=== PATIENT | male | born 1945 | race Caucasian/White ===

== ENCOUNTER 2016-11-19 07:32 | Inpatient (IN) | payer BC, MEDICARE ==
[2016-11-07 10:33] LABS: BASOPHILS 0.5 %; BASOPHILS ABSOLUTE 0.03 10/3/uL (0.0-0.16); EOSINOPHILS 6.2 %; EOSINOPHILS ABSOLUTE 0.37 10/3/uL (0.0-0.53); HEMATOCRIT 41.3 % (40.0-51.0); HEMOGLOBIN 14.1 g/dL (13.6-17.8); IMMATURE GRANULOCYTES 0.2 %; IMMATURE GRANULOCYTES ABSOLUTE 0.01 10/3/uL (0.0-0.11); LYMPHOCYTES 35.5 %; LYMPHOCYTES ABSOLUTE 2.11 10/3/uL (0.67-4.30); MANUAL DIFF NO %; MEAN CORPUS HGB CONC 34.1 g/dL (32.0-36.0); MEAN CORPUSCULAR HEMOGLOB 29.7 pg (26.0-34.0); MEAN CORPUSCULAR VOLUME 86.9 fL (80-100); MEAN PLATELET VOLUME 10.4 fL (9.2-13.0); MONOCYTES 10.4 %; MONOCYTES ABSOLUTE 0.62 10/3/uL (0.21-1.20); NEUTROPHILS 47.2 %; PLATELET COUNT 241 10/3/uL (150-400); RBC DISTRIBUTION WIDTH 12.9 % (12.0-16.0); RED CELL COUNT 4.75 10/6/uL (4.7-6.1); WHITE BLOOD CELLS 5.9 10/3/uL (4.5-10.5)
[2016-11-07 10:41] LABS: PARTIAL THROMBO TIME 32.1 SEC (22.5-37.2)
[2016-11-07 10:47] LABS: % IRON SAT 26 % (20-50); A/G RATIO 1.1 (0.7-1.9); ALBUMIN 3.8 G/DL (3.5-5.0); ALKALINE PHOSPHATASE 78 U/L (45-117); BUN (BLOOD UREA NITROGEN) 11 MG/DL (6-23); CALCIUM, SERUM 8.8 MG/DL (8.5-10.4); CHLORIDE, SERUM 104 MMOL/L (96-112); CO2 (CARBON DIOXIDE) 28 MMOL/L (24-34); CREATININE 0.83 MG/DL (0.70-1.30); GFR AFRICAN AMERICAN 103 ML/MIN (>=60); GFR NON AFRICAN AMERICAN 89 ML/MIN (>=60); GLOBULIN 3.5 G/DL (2.5-4.1); GLUCOSE, SERUM 92 MG/DL (60-99); IRON BINDING CAPACITY 304 MCG/DL (250-450); IRON, SERUM 80 MCG/DL (35-150); POTASSIUM, SERUM 4.2 MMOL/L (3.5-5.3); SGOT(AST) 22 U/L (5-40); SGPT(ALT) 30 U/L (5-65); SODIUM, SERUM 142 MMOL/L (135-148); TOTAL BILIRUBIN 0.6 MG/DL (0-1.2); TOTAL PROTEIN 7.3 G/DL (6.0-8.5)
[2016-11-07 12:11] LABS: ASCORBIC ACID (UR NOT ORDER) NEG (NEG); BILIRUBIN, URINE NEGATIVE (NEG); KETONE, URINE NEGATIVE (NEG); LEUKOCYTE ESTERASE(NOT OR TRACE (NEG); WBC (NOT ORDERED) (RFLEX) 2 (0-5)
--- NOTE | ~2016-11-19 | DS ---
Discharge Summary [facility] [address] [place]. [address] NAME: SHARAN LUEVANO : 47 STATUS : DIS IN PAT#: [id number] AGE: 71 ADM/REG DATE : 11/19/16 MR#: [id number] REPORT SERV DATE: 12/04/16 DICTATED BY: DIVINA ROBBINS DATE: 12/04/16 REPORT STATUS : Draft TRANSCRIBED BY: ANGELA DATE: 12/04/16 Data Collection from hospitalization DISCHARGE DIAGNOSES: 1. Coronary artery disease, status post coronary artery bypass grafting x7. 2. Hypertension. 3. Hypercholesterolemia. 4. Torn left rotator cuff. CONSULTATIONS: Nikos Hernandez M.D. PROCEDURES: 1. Coronary artery bypass grafting x7 with OSORIO to the LAD, reverse saphenous vein graft placed to the first diagonal, reverse saphenous vein graft placed to the second diagonal, reverse saphenous vein graft placed to the first obtuse marginal, reverse saphenous vein graft sequenced to the acute marginal, posterior descending, and posterolateral branch vessel. 2. Endoscopic vein harvest, saphenous vein from the left leg and right thigh, transesophageal echocardiography, 11/19/2016. 3. Emergent reopening of sternotomy washout for evacuation of hematoma, 11/21/2016. DISCHARGE MEDICATIONS: Aspirin 81 mg daily, Lipitor 40 mg at bedtime, Paulden 5/325 one to two tablets every four hours as needed, Toprol-XL 25 mg daily. CONDITION ON DISCHARGE: Stable. DISPOSITION: The patient was discharged home on a low sodium, vegetarian/cardiac diet with activities as instructed. He would follow up with Ousmane Gonzales, N.P., on 12/18/[address] Bryan Driver on 12/26/2016. He will follow up with Dr. Russell Gavin on 12/10/2016. HOSPITAL COURSE: This is a 71-year-old man who has no history of angina or heart problem. He was to undergo a rotator cuff surgery on his left shoulder with Dr. Alonso. Preoperatively, he had an EKG which demonstrated new Q-wave changes compared to previous EKG. He had been referred to Dr. Driver who performed a stress test that demonstrated ischemia in the LAD distribution with reduced ejection fraction during exercise. Cardiac catheterization had revealed significant three-vessel coronary artery disease. His ventricular function was preserved with an ejection fraction greater than 50%. It was felt that he would need to undergo coronary artery bypass grafting. He was admitted to the hospital at this time for further evaluation and treatment. Upon admission, he was taken to the operating room where he underwent the above-mentioned procedure. He tolerated this well. There were no complications. On postop day #1, he had been extubated. He did complain of some incisional pain. He had some bronchial breath sounds. He had no lower extremity edema. Chest x-ray showed left pleural effusion. We encouraged him to mobilize. White count was 12.8. On 11/21/2016, he said he was feeling much better. He had become orthostatic when getting up out of bed to sit in a chair. He had also had some dizziness. Chest tubes were removed. His pacing wires were discontinued. Discharge Summary [address] [address] NAME: SHARAN LUEVANO : 47 STATUS : DIS IN PAT#: [id number] AGE: 71 ADM/REG DATE : 11/19/16 MR#: [id number] REPORT SERV DATE: 12/04/16 DICTATED BY: DIVINA ROBBINS DATE: 12/04/16 REPORT STATUS : Draft TRANSCRIBED BY: ANGELA DATE: 12/04/16 The patient developed some bleeding after pulling the ventricular pacing wires. He was taken back to the operating room where he underwent the above-mentioned procedure. He tolerated this well. There were no complications. He was seen in consultation by Dr. Nikos Hernandez. He was still sedated and intubated. He had undergone reopening for mediastinal hematoma. Statin and aspirin were continued. On 11/22/2016, he appeared comfortable. He had the usual postoperative discomfort. He had no edema. He did have a chest tube still in place. He remained in a sinus rhythm. Discharge planning was performed. Amiodarone and metoprolol were continued. He did have some nausea. He had a few crackles in his lung bases. He had no edema. His incisions looked okay. Discharge planning was performed. On 11/25/2016, he had no new issues. He continued to progress. His chest tube was removed. He was in a sinus rhythm. Discharge instructions were given. Due to his improved and stable condition, he was discharged home with the above-stated instructions. Information collected by: Lucero Dumont I submit the above information as my discharge summary. BRIDGET/ANGELA Divina Robbins M.D. / [id number] CC: Briana Stewart M.D. Allen E Atchley, M.D.
--- NOTE | ~2016-11-19 | OP ---
Record Of Operation [facility] [address] [place]. [address] NAME: SHARAN LUEVANO : 47 STATUS : ADM IN PAT#: [id number] AGE: 71 ADM/REG DATE : 11/19/16 MR#: [id number] REPORT SERV DATE: 11/20/16 DICTATED BY: DIVINA ROBBINS DATE: 11/20/16 REPORT STATUS : Draft TRANSCRIBED BY: MODL DATE: 11/20/16 DATE OF PROCEDURE: 11/19/2016 PREOPERATIVE DIAGNOSES: 1. Coronary artery disease. 2. Hypertension. 3. Hypercholesterolemia. POSTOPERATIVE DIAGNOSES: 1. Coronary artery disease. 2. Hypertension. 3. Hypercholesterolemia. PROCEDURES PERFORMED: 1. Coronary artery bypass grafting x7, left internal mammary artery placed to left anterior descending. Reverse saphenous vein graft placed to the first diagonal, reverse saphenous vein graft placed to the second diagonal, reverse saphenous vein graft placed to the first obtuse marginal. Reverse saphenous vein graft sequenced to the acute marginal, posterior descending, and posterolateral branch vessels. 2. Endoscopic vein harvest, saphenous vein from the left leg and right thigh. 3. Transesophageal echocardiography. SURGEON: Divina Robbins M.D. ASSISTANTS: Johnny Jenkins, Nessa Jenkins, and Flo Gong. ANESTHESIA: General with Dr. Zheng. ATHLETICS TEACHER: Bryan Driver MD. PRIMARY CARE: Russell Gavin M.D. ORTHOPEDIC SURGEON: Neeraj Alonso M.D. INDICATIONS: This is a fairly active and healthy, 71-year-old gentleman who was getting prepared to undergo left shoulder surgery with Dr. Alonso. Preoperatively, he had an EKG performed that demonstrated new Q-wave changes compared to previous EKGs. He was referred to Dr. Driver and stress test was abnormal. He had a ventricular function that was preserved with an ejection fraction greater than 50%. He then underwent a cardiac catheterization which demonstrated significant three-vessel coronary artery disease. We were asked to see the patient for possible coronary artery bypass grafting secondary to the severity of multivessel disease. We saw the patient in our office and discussed possible surgery with he and his and after discussing the operations, indication, risks, they wished to proceed. STS predicted mortality of less than 1%, predicted morbidity and mortality of less than 10% was shared with the and family. Record Of Operation [facility] [address] [place]. [address] NAME: SHARAN LUEVANO : 47 STATUS : ADM IN PAT#: [id number] AGE: 71 ADM/REG DATE : 11/19/16 MR#: [id number] REPORT SERV DATE: 11/20/16 DICTATED BY: DIVINA ROBBINS DATE: 11/20/16 REPORT STATUS : Draft TRANSCRIBED BY: ANGELA DATE: 11/20/16 FINDINGS AT OPERATION: 1. Cross-clamp time, 97 minutes. Total pump time, 112 minutes. 2. LAD was 1.75 mm heavily diseased vessel. A 2.5 mm OSORIO was anastomosed to it with good runoff. This was a diffusely diseased vessel. 3. The first diagonal was 1.5 mm moderately diseased. A 3 mm RSVG was anastomosed to it with good runoff. 4. The second diagonal was 1.75 mm heavily diseased. A 3 mm RSVG was anastomosed to it with good runoff. 5. The first obtuse marginal was 1.75 mm mildly diseased. A 3 mm RSVG was anastomosed to it with good runoff. 6. The acute marginal branch was 2 mm moderately diseased. A 3.5 mm RSVG was anastomosed to it in a [id number]-[id number] fashion with good runoff. 7. The posterior descending artery was 1.5 mm, moderately diseased. The same 3.5 mm RSVG was anastomosed to it in a zspp-ky-hpal fashion with good runoff. 8. The posterolateral branch vessel was 1.75 mm, moderately diseased. 9. The end of the same 3.5 mm RSVG was anastomosed to it with good runoff. 10.The vein quality was good from the thighs. Below the level of the left knee, the vein quality was poor and it was very small. It was not used as a conduit. Therefore, both thighs were utilized as venous conduit for the bypasses. All grafts had good Doppler signal at the end of the case. 11.GRETCHEN at the end of the operation demonstrated good ventricular function with improved inferior and posterior wall motion. There was trace mitral insufficiency. PATHOLOGIC SPECIMENS: None. DESCRIPTION OF PROCEDURE: The patient was brought to the operating suite. General anesthesia was induced, airway secured with an endotracheal tube. Lines secured by Anesthesia. Wiggins catheter was placed. The patient's chest, abdomen, groin, and legs were prepped with Hibiclens and ChloraPrep and draped with Ioban and sterile sheets. GRETCHEN probe was placed by Dr. Swartz and examination carried out in my attendance. The saphenous vein was harvested from the left leg using endoscopic technique. Briefly, the vein was cut directly down upon through a 2 cm incision placed in the medial aspect of the left knee. Then, using VasoView trocars, the vessel was dissected from the surrounding subcutaneous tissue and fat. The side branches were identified, ligated, and divided with cautery. Once adequate length of vein had been dissected, a counter incision made up in the groin and in the lower leg where the vein was ligated, divided, and brought through the knee incision. Below the level of the knee, the vein quality became poor and the vein was small. However, the left thigh vein was of adequate size and quality for conduit. Therefore, an identical cutdown of the right greater saphenous vein at the right knee was performed in the right thigh. Greater saphenous vein was harvested in an identical fashion using endoscopic technique. Once this vein was completely dissected and side branches taken, this vein was ligated proximally at the groin and divided and brought out through this knee incision. The vein quality from the right thigh was good and both leg incisions were then made hemostatic and closed in layers with absorbable suture and skin closed in subcuticular fashion. Then, a midline sternal incision was made and the sternum opened with a saw. The left Record Of Operation [facility] [id number] [place]. [address] NAME: SHARAN LUEVANO : 47 STATUS : ADM IN [facility]#: [id number] AGE: 71 ADM/REG DATE : 11/19/16 MR#: [id number] REPORT SERV DATE: 11/20/16 DICTATED BY: DIVINA ROBBINS DATE: 11/20/16 REPORT STATUS : Draft TRANSCRIBED BY: MODL DATE: 11/20/16 hemithorax was elevated and the endothoracic fascia was incised. Side branch of the NIKKI were clipped and divided. Once the NIKKI was completely dissected, the patient was anticoagulated with heparin. The chest tube was placed in the left pleural cavity. The NIKKI was clipped and divided distally. There was good flow through the NIKKI and its pedicle was infiltrated with papaverine. The Felix retractor was placed in the pericardium over from the innominate vein. The diaphragm was T'd and tacked to the side of the chest wall. Cannulation pursestring sutures placed and cannulation was carried out in routine manner. A retrograde cardioplegia cannula was placed in the coronary sinus. When all was in readiness, the patient was placed on cardiopulmonary bypass. The distal targets were marked out on the heart as described in the findings. Then, a heart support was placed. The aorta was crossclamped and an initial dose of cold blood cardioplegia solution was given in a combination of antegrade and retrograde fashion, then in a retrograde manner following proximal anastomoses. Following the first dose of cardioplegia, the heart was positioned for the posterolateral branch graft. Arteriotomy was made and the vein graft trimmed and anastomosed it with 7-0 Prolene. This vein graft was then planned as a sequential graft and it was brought back to the posterior descending artery. Another arteriotomy was made and the vein was matched to this site and opened. A ykfp-ko-zttq saphenous-coronary anastomosis was then constructed with a running suture of 7-0 Prolene. The heart was distended and the vein was brought up towards the acute marginal branch where third sequential graft was performed. Arteriotomy was made in the acute marginal branch vessel and the vein was opened correspondingly. A lsxc-kk-hiek saphenous-coronary anastomosis was constructed with 7-0 Prolene. Then, the heart was gently distended and the vein was measured up to the ascending aorta where it was divided and anastomosed to a 4.5 mm punch aortotomy with 6-0 Prolene. Another dose of cardioplegia was given and the heart was positioned for the obtuse marginal graft. Arteriotomy was made and the vein graft was trimmed and anastomosed to it with 7-0 Prolene. This vein graft was measured to the left side of the ascending aorta where it was divided. Then, the heart was positioned for the first diagonal graft. No arteriotomy was made and the vein graft trimmed and anastomosed to this vessel with 7-0 Prolene. This vein graft was measured back to the left side of the ascending aorta where it was divided. Next, proximal ends of the two vein grafts were anastomosed to 4.5 mm punch aortotomy with 6-0 Prolene. Another dose of cardioplegia was given and the heart was positioned for the second diagonal graft. Arteriotomy was made. The vein graft was trimmed and anastomosed to it with 7-0 Prolene. This vein graft was measured back to the left side of the ascending aorta where it was divided and anastomosed to a 4.5 mm punch aortotomy with 6-0 Prolene. We then positioned the heart for the LAD graft. Warming was begun. Arteriotomy was made in the mid LAD through a stenotic lesion. Then, the NIKKI was brought out the left chest through a notch in the pericardium over the pulmonary artery. The NIKKI was opened correspondingly and anastomosed to the LAD with running suture of 8-0 Prolene. The endothoracic fascia was tacked to the epicardium. The patient was placed in Trendelenburg and a final dose of warm blood cardioplegia was given in a retrograde fashion. Ventricular and atrial pacing wires were placed. Following Record Of Operation [facility] [id number] [place]. [address] NAME: SHARAN LUEVANO : 47 STATUS : ADM IN PAT#: [id number] AGE: 71 ADM/REG DATE : 11/19/16 MR#: [id number] REPORT SERV DATE: 11/20/16 DICTATED BY: DIVINA ROBBINS DATE: 11/20/16 REPORT STATUS : Draft TRANSCRIBED BY: ANGELA DATE: 11/20/16 the last dose of cardioplegia and deairing of the aorta, the aortic cross clamp was removed. The distal and proximal anastomoses were inspected and made hemostatic. Doppler demonstrated good flow through the grafts. Ventilation was begun. When the heart demonstrated good contractility, it was allowed to fill and eject. When deairing was completed, the patient was taken out of Trendelenburg. The ascending aortic vent removed and these pursestring sutures tied and reinforced. The patient was weaned from cardiopulmonary bypass with minimal inotropic support. The venous cannula was removed and these pursestring sutures tied. GRETCHEN examination demonstrated good ventricular function with no significant valvular pathology. Protamine was administered by Anesthesia and following a period of hemodynamic stability, aortic cannula was removed and these pursestring sutures were tied and reinforced. The patient continued to do well and chest irrigated copiously with saline. Meticulous hemostasis was obtained. Hemasorb was placed along the cut edge of the sternum. Once hemostasis was assured, the pericardium was draped over the anterior surface of the heart and tacked into position. Doppler demonstrated good flow through the grafts following protamine administration. Then, chest tubes were placed and sternum reapproximated with 8 sternal wires. The clavipectoral fascia and linea alba were closed with 0 PDS. Subcutaneous tissue was closed and the skin was closed in subcuticular fashion. The patient tolerated the procedure well. There were no complications. Sponge and needle counts were correct. DISPOSITION: The patient was left intubated, sedated, and transported to the Intensive Care Unit in stable condition. DESTIN/ANGELA Divina Robbins M.D. / [id number] CC: Briana Stewart M.D. Brett S Sanders, M.D. Vinay Deep Madan, MD
--- NOTE | ~2016-11-19 | OP ---
Record Of Operation [facility] [address] [place]. [address] NAME: SHARAN LUEVANO : 47 STATUS : ADM IN PAT#: [id number] AGE: 71 ADM/REG DATE : 11/19/16 MR#: [id number] REPORT SERV DATE: 11/21/16 DICTATED BY: DIVINA ROBBINS DATE: 11/21/16 REPORT STATUS : Draft TRANSCRIBED BY: MODL DATE: 11/21/16 DATE OF PROCEDURE: 11/21/2016 PREOPERATIVE DIAGNOSES: 1. Mediastinal hemorrhage after coronary bypass grafting. 2. Coronary artery disease, status post previous CABG. PROCEDURE PERFORMED: Emergent reopening of sternotomy wash out for evacuation of hematoma. SURGEON: Divina Robbins M.D. ASSISTANTS: Johnny Jenkins and MINDY Johnson. ANESTHESIA: General with Dr. Quispe. INDICATIONS: This is a 71-year-old gentleman who underwent uncomplicated 7-vessel bypass on 11/19/2016. He did well postoperatively. He had mild oozing postoperatively but this resolved. He was stable this morning and being sent to the floor. As part of routine postoperative care, the pacing wires were discontinued early this morning. Unfortunately, he began having a fair amount of bleeding from the mediastinal chest tube. He put out about 500 mL in about 20 minutes. His blood pressure did fall although his heart rate did not elevate. He was conscious and stable. I was called and I felt that the patient should go back to the operating room emergently for re-exploration and evaluation. This was discussed with the patient's and the patient. They wished to proceed. FINDINGS AT OPERATION: 1. There was a large amount of clot around the heart and in the left chest but no active bleeding was encountered. 2. There was a small tear of the right ventricle where the pacing wire has been removed. This was not active bleeding at the time of reopening but probably was the source of hemorrhage from this morning. 3. Doppler signal of all the grafts demonstrated good flow. PATHOLOGIC SPECIMENS: None. DESCRIPTION OF PROCEDURE: The patient was brought back to the operating suite by Dr. Quispe and I was present in the room. Depression in the patient's blood pressure was in the 100s, on some Levophed. He was then prepped and an A-line placed in the left radial artery. Anesthesia was induced by quickly and airway secured with an endotracheal tube. The patient's chest and abdomen were prepped with Hibiclens and ChloraPrep and draped with Ioban and sterile sheets. Midline sternal incision was reopened. The sutures were removed, as were hemodynamically stable. The wires were removed and a retractor was placed. Record Of Operation [facility] [address] [place]. [address] NAME: SHARAN LUEVANO : 47 STATUS : ADM IN PAT#: [id number] AGE: 71 ADM/REG DATE : 11/19/16 MR#: [id number] REPORT SERV DATE: 11/21/16 DICTATED BY: DIVINA ROBBINS DATE: 11/21/16 REPORT STATUS : Draft TRANSCRIBED BY: ANGELA DATE: 11/21/16 We then spent the next 45 minutes evacuating a large amount of clot from the left chest and around the heart. There were no areas of active bleeding encountered. After evacuating the clot from the inferior wall of the heart on the right ventricle, there was a small laceration noted in the inferior wall of the right ventricle. This was not actively bleeding. I felt that this is most likely the site of the hemorrhage that was seen after pulling the pacing wire. After evacuation of all clot and wash out of the chest completely, we Dopplered the grafts. They all had excellent signals. Next, meticulous hemostasis was obtained. The pericardium was draped over the anterior surface of the heart, tacked into position. Chest tubes were cleared of clot and replaced. The sternum was then reapproximated with 8 sternal wires. Clavipectoral fascia and linea alba closed with #1 Stratafix. The subcutaneous tissue was closed with 2-0 Stratafix and skin closed in subcuticular fashion. The patient tolerated the procedure well. There were no complications. DISPOSITION: He was left intubated, sedated, and administered 2 units of blood in the operating suite. He was taken back to the intensive care unit in stable condition. DESTIN/ANGELA Briana Stewart#: [id number] / [id number] CC: Briana Stewart M.D.
[~2016-11-19 07:32] MED LIST: ASAB PO; LIPITOR40 PO; TOPXL25 PO
[2016-11-19 13:49] LABS: HEMOGLOBIN 11.9 g/dL (13.6-17.8)
[2016-11-19 13:50] LABS: HEMATOCRIT 35.2 % (40.0-51.0); PLATELET COUNT 132 10/3/uL (150-400)
[2016-11-19 13:55] LABS: PARTIAL THROMBO TIME 33.1 SEC (22.5-37.2)
[2016-11-19 13:56] LABS: INTERNATIONAL NORMAL RATI 1.4 UNITS (-); PROTIME (NOT ORD) 16.6 SEC (12.0-14.5)
[2016-11-19 14:02] LABS: BUN (BLOOD UREA NITROGEN) 12 MG/DL (6-23); CALCIUM, SERUM 8.3 MG/DL (8.5-10.4); CHLORIDE, SERUM 112 MMOL/L (96-112); CO2 (CARBON DIOXIDE) 25 MMOL/L (24-34); CREATININE 0.89 MG/DL (0.70-1.30); GFR AFRICAN AMERICAN 100 ML/MIN (>=60); GFR NON AFRICAN AMERICAN 87 ML/MIN (>=60); GLUCOSE, SERUM 142 MG/DL (60-99); POTASSIUM, SERUM 4.2 MMOL/L (3.5-5.3); SODIUM, SERUM 143 MMOL/L (135-148)
[2016-11-19 17:31] LABS: BE (BASE EXCESS) -3.9 MEQ/L (0 +/- 2.5); CARBOXYHEMOGLOBIN 0.3 % (0-3); HCO3 (ACTUAL BICARBONATE) 19.8 MEQ/L (23-27); HEMOBLOGIN CONTENT 11.4 G/DL (14-18); INSTRUMENT SERIAL # 11843; METHEMOGLOBIN 0.4 % (0-3); PCO2 (CO2 TENSION) 32 MMHG (35-45); PO2 (O2 TENSION) 98 MMHG (79-93); pH 7.41 (7.37-7.43)
[2016-11-19 17:32] LABS: DEVICE NC; O2 CONTENT 15.5 VOL% (18-24); OPERATOR ID 13715; SAMPLE Arterial
[2016-11-19 18:52] LABS: HEMATOCRIT 31.9 % (40.0-51.0); HEMOGLOBIN 10.7 g/dL (13.6-17.8)
[2016-11-19 19:04] LABS: BUN (BLOOD UREA NITROGEN) 14 MG/DL (6-23); CALCIUM, SERUM 8.1 MG/DL (8.5-10.4); CHLORIDE, SERUM 111 MMOL/L (96-112); CO2 (CARBON DIOXIDE) 24 MMOL/L (24-34); CREATININE 0.82 MG/DL (0.70-1.30); GFR AFRICAN AMERICAN 104 ML/MIN (>=60); GFR NON AFRICAN AMERICAN 90 ML/MIN (>=60); GLUCOSE, SERUM 137 MG/DL (60-99); POTASSIUM, SERUM 4.3 MMOL/L (3.5-5.3); SODIUM, SERUM 144 MMOL/L (135-148)
[2016-11-19 20:30] LABS: PLATELET COUNT 155 10/3/uL (150-400)
[2016-11-19 20:31] LABS: INTERNATIONAL NORMAL RATI 1.2 UNITS (-); PARTIAL THROMBO TIME 30.3 SEC (22.5-37.2); PROTIME (NOT ORD) 15.5 SEC (12.0-14.5)
[2016-11-20 01:35] LABS: BASOPHILS 0 %; EOSINOPHILS 0 %; HEMOGLOBIN 8.6 g/dL (13.6-17.8); IMMATURE GRANULOCYTES 0.2 %; IMMATURE GRANULOCYTES ABSOLUTE 0.02 10/3/uL (0.0-0.11); LYMPHOCYTES 6.3 %; MEAN CORPUS HGB CONC 33.3 g/dL (32.0-36.0); MEAN CORPUSCULAR HEMOGLOB 29.4 pg (26.0-34.0); MEAN CORPUSCULAR VOLUME 88.1 fL (80-100); MEAN PLATELET VOLUME 10.5 fL (9.2-13.0); MONOCYTES 8.8 %; MONOCYTES ABSOLUTE 1.13 10/3/uL (0.21-1.20); NEUTROPHILS 84.7 %; NEUTROPHILS ABSOLUTE 10.83 10/3/uL (2.02-8.40); PLATELET COUNT 133 10/3/uL (150-400)
[2016-11-20 01:37] LABS: HEMATOCRIT 25.8 % (40.0-51.0); MANUAL DIFF NO %; RED CELL COUNT 2.93 10/6/uL (4.7-6.1); WHITE BLOOD CELLS 12.8 10/3/uL (4.5-10.5)
[2016-11-20 01:51] LABS: BUN (BLOOD UREA NITROGEN) 16 MG/DL (6-23); CALCIUM, SERUM 8.2 MG/DL (8.5-10.4); CHLORIDE, SERUM 110 MMOL/L (96-112); CO2 (CARBON DIOXIDE) 25 MMOL/L (24-34); CREATININE 0.84 MG/DL (0.70-1.30); GFR AFRICAN AMERICAN 103 ML/MIN (>=60); GFR NON AFRICAN AMERICAN 89 ML/MIN (>=60); POTASSIUM, SERUM 3.9 MMOL/L (3.5-5.3); SODIUM, SERUM 143 MMOL/L (135-148)
[2016-11-20 02:05] LABS: GLUCOSE, SERUM 94 MG/DL (60-99)
[2016-11-20 04:20] LABS: HEMATOCRIT 23.8 % (40.0-51.0); HEMOGLOBIN 8.1 g/dL (13.6-17.8); PLATELET COUNT 133 10/3/uL (150-400)
[2016-11-20 04:27] LABS: INTERNATIONAL NORMAL RATI 1.3 UNITS (-); PARTIAL THROMBO TIME 29.2 SEC (22.5-37.2)
[2016-11-20 12:04] LABS: BASOPHILS 0 %; EOSINOPHILS 0 %; HEMATOCRIT 24.4 % (40.0-51.0); IMMATURE GRANULOCYTES 0.2 %; IMMATURE GRANULOCYTES ABSOLUTE 0.04 10/3/uL (0.0-0.11); LYMPHOCYTES 9.6 %; LYMPHOCYTES ABSOLUTE 1.67 10/3/uL (0.67-4.30); MEAN CORPUS HGB CONC 32.8 g/dL (32.0-36.0); MEAN CORPUSCULAR HEMOGLOB 29.2 pg (26.0-34.0); MEAN CORPUSCULAR VOLUME 89.1 fL (80-100); MEAN PLATELET VOLUME 10.8 fL (9.2-13.0); MONOCYTES 9.4 %; MONOCYTES ABSOLUTE 1.63 10/3/uL (0.21-1.20); NEUTROPHILS 80.8 %; NEUTROPHILS ABSOLUTE 14.07 10/3/uL (2.02-8.40); PLATELET COUNT 142 10/3/uL (150-400); RBC DISTRIBUTION WIDTH 13.6 % (12.0-16.0); RED CELL COUNT 2.74 10/6/uL (4.7-6.1); WHITE BLOOD CELLS 17.4 10/3/uL (4.5-10.5)
[2016-11-20 12:06] LABS: MANUAL DIFF NO %
[2016-11-20 12:12] LABS: CALCIUM, SERUM 8.2 MG/DL (8.5-10.4); POTASSIUM, SERUM 4.4 MMOL/L (3.5-5.3)
[2016-11-20 15:48] LABS: HEMATOCRIT 24.1 % (40.0-51.0)
[2016-11-21 03:27] LABS: BASOPHILS 0 %; EOSINOPHILS 0 %; IMMATURE GRANULOCYTES 0.3 %; IMMATURE GRANULOCYTES ABSOLUTE 0.04 10/3/uL (0.0-0.11); LYMPHOCYTES 11.6 %; LYMPHOCYTES ABSOLUTE 1.55 10/3/uL (0.67-4.30); MEAN CORPUS HGB CONC 33.7 g/dL (32.0-36.0); MEAN CORPUSCULAR HEMOGLOB 30.4 pg (26.0-34.0); MEAN CORPUSCULAR VOLUME 90.4 fL (80-100); MEAN PLATELET VOLUME 10.7 fL (9.2-13.0); MONOCYTES 12.9 %; MONOCYTES ABSOLUTE 1.72 10/3/uL (0.21-1.20); NEUTROPHILS 75.2 %; NEUTROPHILS ABSOLUTE 10.04 10/3/uL (2.02-8.40); PLATELET COUNT 112 10/3/uL (150-400); RBC DISTRIBUTION WIDTH 13.5 % (12.0-16.0); WHITE BLOOD CELLS 13.4 10/3/uL (4.5-10.5)
[2016-11-21 03:30] LABS: HEMATOCRIT 20.8 % (40.0-51.0); MANUAL DIFF NO %
[2016-11-21 03:40] LABS: BUN (BLOOD UREA NITROGEN) 21 MG/DL (6-23); CALCIUM, SERUM 7.8 MG/DL (8.5-10.4); CHLORIDE, SERUM 107 MMOL/L (96-112); CO2 (CARBON DIOXIDE) 23 MMOL/L (24-34); CREATININE 0.85 MG/DL (0.70-1.30); GFR AFRICAN AMERICAN 102 ML/MIN (>=60); GFR NON AFRICAN AMERICAN 88 ML/MIN (>=60); GLUCOSE, SERUM 123 MG/DL (60-99); POTASSIUM, SERUM 4.4 MMOL/L (3.5-5.3); SODIUM, SERUM 141 MMOL/L (135-148)
[2016-11-21 08:53] LABS: INTERNATIONAL NORMAL RATI 1.5 UNITS (-); PARTIAL THROMBO TIME 32.6 SEC (22.5-37.2); PROTIME (NOT ORD) 18.2 SEC (12.0-14.5)
[2016-11-21 08:58] LABS: BASOPHILS 0.1 %; BASOPHILS ABSOLUTE 0.01 10/3/uL (0.0-0.16); EOSINOPHILS 0 %; IMMATURE GRANULOCYTES 0.4 %; IMMATURE GRANULOCYTES ABSOLUTE 0.05 10/3/uL (0.0-0.11); LYMPHOCYTES 9.3 %; LYMPHOCYTES ABSOLUTE 1.25 10/3/uL (0.67-4.30); MEAN CORPUS HGB CONC 34.3 g/dL (32.0-36.0); MEAN PLATELET VOLUME 11.2 fL (9.2-13.0); MONOCYTES 11.3 %; MONOCYTES ABSOLUTE 1.53 10/3/uL (0.21-1.20); NEUTROPHILS 78.9 %; NEUTROPHILS ABSOLUTE 10.67 10/3/uL (2.02-8.40); RBC DISTRIBUTION WIDTH 14.7 % (12.0-16.0); WHITE BLOOD CELLS 13.5 10/3/uL (4.5-10.5)
[2016-11-21 09:03] LABS: BE (BASE EXCESS) -4.7 MEQ/L (0 +/- 2.5); CARBOXYHEMOGLOBIN 0.2 % (0-3); HEMOBLOGIN CONTENT 10.9 G/DL (14-18); INSTRUMENT SERIAL # 11843; METHEMOGLOBIN 0.6 % (0-3); MODE SIMV; O2 CONTENT 15.2 VOL% (18-24); OPERATOR ID 19104; PCO2 (CO2 TENSION) 36 MMHG (35-45); PO2 (O2 TENSION) 151 MMHG (79-93); SAMPLE Arterial; pH 7.37 (7.37-7.43)
[2016-11-21 09:04] LABS: HEMATOCRIT 27.4 % (40.0-51.0); HEMOGLOBIN 9.4 g/dL (13.6-17.8); MEAN CORPUSCULAR VOLUME 87.5 fL (80-100); PLATELET COUNT 66 10/3/uL (150-400); RED CELL COUNT 3.13 10/6/uL (4.7-6.1)
[2016-11-21 09:04] LABS: TIDAL VOLUME 700 ML
[2016-11-21 09:05] LABS: MANUAL DIFF NO %
[2016-11-21 09:47] LABS: PLATELET ESTIMATE DEC (ADEQUATE)
[2016-11-21 09:48] LABS: OVALOCYTES 1+ (3-10/OIF) (0-2/OIF); TOXIC GRANULATION SLT
[2016-11-21 09:52] LABS: BUN (BLOOD UREA NITROGEN) 23 MG/DL (6-23); CALCIUM, SERUM 7.3 MG/DL (8.5-10.4); CHLORIDE, SERUM 110 MMOL/L (96-112); CO2 (CARBON DIOXIDE) 22 MMOL/L (24-34); CREATININE 1.09 MG/DL (0.70-1.30); GFR AFRICAN AMERICAN 79 ML/MIN (>=60); GFR NON AFRICAN AMERICAN 68 ML/MIN (>=60); GLUCOSE, SERUM 131 MG/DL (60-99); POTASSIUM, SERUM 3.8 MMOL/L (3.5-5.3); SODIUM, SERUM 143 MMOL/L (135-148)
[2016-11-21 14:16] LABS: BE (BASE EXCESS) -0.6 MEQ/L (0 +/- 2.5); CARBOXYHEMOGLOBIN 0.3 % (0-3); DEVICE NC; HCO3 (ACTUAL BICARBONATE) 23.5 MEQ/L (23-27); HEMOBLOGIN CONTENT 9.8 G/DL (14-18); INSTRUMENT SERIAL # 11843; METHEMOGLOBIN 0.7 % (0-3); OPERATOR ID 13715; PCO2 (CO2 TENSION) 37 MMHG (35-45); PO2 (O2 TENSION) 75 MMHG (79-93); SAMPLE Arterial; pH 7.43 (7.37-7.43)
[2016-11-21 16:12] LABS: HEMATOCRIT 27.4 % (40.0-51.0); HEMOGLOBIN 9.4 g/dL (13.6-17.8)
[2016-11-21 16:17] LABS: POTASSIUM, SERUM 4.3 MMOL/L (3.5-5.3)
[2016-11-21 16:51] LABS: PLATELET COUNT 74 10/3/uL (150-400)
[2016-11-21 22:35] LABS: HEMOGLOBIN 8.9 g/dL (13.6-17.8)
[2016-11-21 22:44] LABS: POTASSIUM, SERUM 4.1 MMOL/L (3.5-5.3)
[2016-11-22 04:14] LABS: BUN (BLOOD UREA NITROGEN) 20 MG/DL (6-23); CALCIUM, SERUM 7.3 MG/DL (8.5-10.4); CHLORIDE, SERUM 106 MMOL/L (96-112); CO2 (CARBON DIOXIDE) 26 MMOL/L (24-34); CREATININE 0.72 MG/DL (0.70-1.30); GFR AFRICAN AMERICAN 110 ML/MIN (>=60); GFR NON AFRICAN AMERICAN 95 ML/MIN (>=60); GLUCOSE, SERUM 122 MG/DL (60-99); POTASSIUM, SERUM 3.9 MMOL/L (3.5-5.3); SODIUM, SERUM 140 MMOL/L (135-148)
[2016-11-22 04:34] LABS: BASOPHILS 0.1 %; BASOPHILS ABSOLUTE 0.02 10/3/uL (0.0-0.16); EOSINOPHILS 0.1 %; EOSINOPHILS ABSOLUTE 0.01 10/3/uL (0.0-0.53); HEMATOCRIT 25.9 % (40.0-51.0); HEMOGLOBIN 8.9 g/dL (13.6-17.8); IMMATURE GRANULOCYTES 0.3 %; IMMATURE GRANULOCYTES ABSOLUTE 0.04 10/3/uL (0.0-0.11); LYMPHOCYTES 10.3 %; LYMPHOCYTES ABSOLUTE 1.42 10/3/uL (0.67-4.30); MEAN CORPUS HGB CONC 34.4 g/dL (32.0-36.0); MEAN CORPUSCULAR HEMOGLOB 30.1 pg (26.0-34.0); MEAN CORPUSCULAR VOLUME 87.5 fL (80-100); MEAN PLATELET VOLUME 10.5 fL (9.2-13.0); MONOCYTES 13.3 %; MONOCYTES ABSOLUTE 1.83 10/3/uL (0.21-1.20); NEUTROPHILS 75.9 %; NEUTROPHILS ABSOLUTE 10.46 10/3/uL (2.02-8.40); PLATELET COUNT 75 10/3/uL (150-400); RED CELL COUNT 2.96 10/6/uL (4.7-6.1); WHITE BLOOD CELLS 13.8 10/3/uL (4.5-10.5)
[2016-11-22 04:35] LABS: MANUAL DIFF NO %
[2016-11-22 06:15] LABS: HELMET CELLS OCC (0-2/OIF); PLATELET ESTIMATE DEC (ADEQUATE); POLYCHROMASIA 1+ (2-5/OIF) (0-1/OIF); TEARDROP SHAPED RBCS OCC (0-2/OIF)
[2016-11-22 06:16] LABS: MICROCYTES 1+ (5-10/OIF) (0-5/OIF)
[2016-11-22 18:57] LABS: HEMATOCRIT 26.9 % (40.0-51.0); HEMOGLOBIN 8.9 g/dL (13.6-17.8)
[2016-11-22 19:03] LABS: POTASSIUM, SERUM 4.1 MMOL/L (3.5-5.3)
[2016-11-23 04:22] LABS: BASOPHILS 0.1 %; BASOPHILS ABSOLUTE 0.01 10/3/uL (0.0-0.16); EOSINOPHILS 1.8 %; EOSINOPHILS ABSOLUTE 0.21 10/3/uL (0.0-0.53); HEMATOCRIT 26.3 % (40.0-51.0); HEMOGLOBIN 8.9 g/dL (13.6-17.8); IMMATURE GRANULOCYTES 0.3 %; IMMATURE GRANULOCYTES ABSOLUTE 0.04 10/3/uL (0.0-0.11); LYMPHOCYTES 14.6 %; LYMPHOCYTES ABSOLUTE 1.68 10/3/uL (0.67-4.30); MEAN CORPUS HGB CONC 33.8 g/dL (32.0-36.0); MEAN CORPUSCULAR HEMOGLOB 29.5 pg (26.0-34.0); MEAN CORPUSCULAR VOLUME 87.1 fL (80-100); MEAN PLATELET VOLUME 10.3 fL (9.2-13.0); MONOCYTES 11.9 %; MONOCYTES ABSOLUTE 1.37 10/3/uL (0.21-1.20); NEUTROPHILS 71.3 %; NEUTROPHILS ABSOLUTE 8.22 10/3/uL (2.02-8.40); RBC DISTRIBUTION WIDTH 14.8 % (12.0-16.0); RED CELL COUNT 3.02 10/6/uL (4.7-6.1); WHITE BLOOD CELLS 11.5 10/3/uL (4.5-10.5)
[2016-11-23 04:25] LABS: MANUAL DIFF NO %; PLATELET COUNT 113 10/3/uL (150-400)
[2016-11-23 04:37] LABS: BUN (BLOOD UREA NITROGEN) 12 MG/DL (6-23); CALCIUM, SERUM 7.7 MG/DL (8.5-10.4); CHLORIDE, SERUM 102 MMOL/L (96-112); CO2 (CARBON DIOXIDE) 30 MMOL/L (24-34); CREATININE 0.63 MG/DL (0.70-1.30); GFR AFRICAN AMERICAN 116 ML/MIN (>=60); GFR NON AFRICAN AMERICAN 100 ML/MIN (>=60); GLUCOSE, SERUM 110 MG/DL (60-99); POTASSIUM, SERUM 4.4 MMOL/L (3.5-5.3); SODIUM, SERUM 139 MMOL/L (135-148)
[2016-11-24 04:44] LABS: BASOPHILS 0.2 %; BASOPHILS ABSOLUTE 0.02 10/3/uL (0.0-0.16); EOSINOPHILS 6.4 %; EOSINOPHILS ABSOLUTE 0.62 10/3/uL (0.0-0.53); HEMATOCRIT 26.4 % (40.0-51.0); HEMOGLOBIN 9.3 g/dL (13.6-17.8); IMMATURE GRANULOCYTES 0.4 %; IMMATURE GRANULOCYTES ABSOLUTE 0.04 10/3/uL (0.0-0.11); LYMPHOCYTES 18.1 %; LYMPHOCYTES ABSOLUTE 1.76 10/3/uL (0.67-4.30); MEAN CORPUS HGB CONC 35.2 g/dL (32.0-36.0); MEAN CORPUSCULAR HEMOGLOB 30.9 pg (26.0-34.0); MEAN CORPUSCULAR VOLUME 87.7 fL (80-100); MEAN PLATELET VOLUME 9.8 fL (9.2-13.0); MONOCYTES 10.5 %; MONOCYTES ABSOLUTE 1.02 10/3/uL (0.21-1.20); NEUTROPHILS 64.4 %; NEUTROPHILS ABSOLUTE 6.28 10/3/uL (2.02-8.40); RBC DISTRIBUTION WIDTH 14.7 % (12.0-16.0); RED CELL COUNT 3.01 10/6/uL (4.7-6.1); WHITE BLOOD CELLS 9.7 10/3/uL (4.5-10.5)
[2016-11-24 04:51] LABS: MANUAL DIFF NO %; PLATELET COUNT 178 10/3/uL (150-400)
[2016-11-24 05:02] LABS: BUN (BLOOD UREA NITROGEN) 10 MG/DL (6-23); CALCIUM, SERUM 7.9 MG/DL (8.5-10.4); CHLORIDE, SERUM 105 MMOL/L (96-112); CO2 (CARBON DIOXIDE) 28 MMOL/L (24-34); CREATININE 0.61 MG/DL (0.70-1.30); GFR AFRICAN AMERICAN 117 ML/MIN (>=60); GFR NON AFRICAN AMERICAN 101 ML/MIN (>=60); GLUCOSE, SERUM 97 MG/DL (60-99); POTASSIUM, SERUM 3.9 MMOL/L (3.5-5.3); SODIUM, SERUM 141 MMOL/L (135-148)
[2016-11-24 05:06] LABS: INTERNATIONAL NORMAL RATI 1.2 UNITS (-)
[2016-11-24 05:10] LABS: PROTIME (NOT ORD) 14.9 SEC (12.0-14.5)
[2016-11-25] MEDS ORDERED: NORCO1 TA1 PO (08:48)
== END 2016-11-25 11:38 | disposition home or self-care (01) | DRG 228 ==
LOC: SDC/OF 07:32 → CVICU 11:25 → 5NO 11-23 12:17
PROVIDERS: Thoracic Surgery (Cardiothoracic Vascular Surgery)
PROC: 06BQ4ZZ Excision of Left Saphenous Vein, Percutaneous Endoscopic Approach (ICD-10-PCS; 2016-11-19)
PROC: 06BP4ZZ Excision of Right Saphenous Vein, Percutaneous Endoscopic Approach (ICD-10-PCS; 2016-11-19)
PROC: 5A1221Z Performance of Cardiac Output, Continuous (ICD-10-PCS; 2016-11-19)
PROC: B246ZZ4 Ultrasonography of Right and Left Heart, Transesophageal (ICD-10-PCS; 2016-11-19)
PROC: 021 Heart and Great Vessels, Bypass (ICD-10-PCS; principal; 2016-11-19 10:00)
PROC: 0210099 Bypass Coronary Artery, One Artery from Left Internal Mammary with Autologous Venous Tissue, Open Approach (ICD-10-PCS; 2016-11-19 10:00)
PROC: 02C Heart and Great Vessels, Extirpation (ICD-10-PCS; 2016-11-19 10:00)
DX: I25.10 Atherosclerotic heart disease of native coronary artery without angina pectoris (principal); S26.92XA Laceration of heart, unspecified with or without hemopericardium, initial encounter; I97.611 Postprocedural hemorrhage of a circulatory system organ or structure following cardiac bypass; D62 Acute posthemorrhagic anemia; I10 Essential (primary) hypertension; E78.00 Pure hypercholesterolemia, unspecified; Y83.9 Surgical procedure, unspecified as the cause of abnormal reaction of the patient, or of later complication, without mention of misadventure at the time of the procedure
CPT/HCPCS: 31720; 36415; 71010; 71020; 80048; 80053; 81001; 82310; 82330; 82803; 82805; 82947; 82962; 83036; 83540; 83550; 83735; 84132; 84295; 85014; 85018; 85025; 85049; 85347; 85384; 85610; 85730; 86850; 86900; 86901; 86920; 87641; 93005; 93312; 93320; 93325; 94002; 94640; 94660; 94770; A9270-GY; C1713; C1725; C1751; C1769; C1894; J0330; J0690; J1644; J2150; J2250; J2370; J2405; J2440; J2720; J2795; J2930; J3010; J3475; J3480; P9016; P9045; P9047; P9059